=== PATIENT | female | born 1995 | race Caucasian/White ===

== ENCOUNTER 2016-08-27 13:21 | Emergency (ER) | payer OTHER ==
[2016-08-27 13:27] VITALS: BP 113/69
[2016-08-27] MEDS ORDERED: TYLENOL PO ONE (13:32)
[2016-08-27] MEDS ORDERED: TYLENOL ONE (13:33)
--- NOTE | 2016-08-27 14:42 | PROVIDER DOCUMENTATION ---
HPI-EENT General - General Chief Complaint: Cold Symptoms Stated Complaint: COLD SX/7WKS PREG Time Seen by Provider: 08/27/16 14:28 Source: patient Allergies/Adverse Reactions: Patient Allergies Allergy/AdvReac Type Severity Reaction Status Date / Time No Known Allergies Allergy Verified 08/27/16 13:26 Home Medications: Home Medication List Medication Instructions Recorded Confirmed Last Taken Type Oseltamivir [Tamiflu] 75 mg PO BID #10 capsule 08/27/16 Unknown Rx - History of Present Illness-EE General Nature of Presenting Problem: 21 y/o AAF 7 weeks by LMP, c/o cough, congestion and muscle aches x 24 hours. Child is also sick. Fevers subjective. Denies abdominal pain, vaginal bleeding or discharge. No treatment to this point. Denies wheezing or sob. Denies ENT pain Review of Systems - Adult - REVIEW OF SYSTEMS - ADULT Constitutional: reports: see HPI, chills, fever, fatique Eyes: denies: decreased vision, blurred vision, double vision, eye pain Ears, Nose, Mouth & Throat: reports: see HPI. denies: ear pain, nose pain, throat pain Cardiovascular: reports: no symptoms reported. denies: chest pain Respiratory: reports: cough. denies: shortness of breath, wheezing Gastrointestinal: reports: no symptoms reported. denies: abdominal pain, diarrhea, nausea, vomiting Genitourinary: reports: no symptoms reported. denies: dysuria, discharge, frequency, incontinence Musculoskeletal: reports: see HPI, muscle aches. denies: back pain Integumentary: reports: no symptoms reported. denies: rash Neurological: reports: no symptoms reported. denies: headache/migraines Psychiatric: reports: no symptoms reported Endocrine: reports: no symptoms reported Hematologic/Lymphatic: reports: no symptoms reported Allergic/Immunologic: reports: no symptoms reported All Other Systems: Reviewed and Negative Past History - Adult - PAST MEDICAL HISTORY-ADULT Review of Records: reports: Old Records Reviewed, Nursing Assessment Review, Medications Reviewed Major Childhood Illnesses: reports: denies history Cardiovascular: reports: denies history Respiratory: reports: denies history Gastrointestinal: reports: denies history Obstetrical/Gynecological: reports: denies history Genitourinary: reports: denies history Musculoskeletal: reports: denies history Neurological: reports: denies history Endocrine/Immune: reports: denies history Other Conditions: reports: denies history - PRIOR SURGERIES/PROCEDURES Surgical/Procedure History: reports: reviewed, not pertinent - IMMUNIZATION STATUS Childhood Immunizations: See Nurse Assessment Flu Vaccine: See Nurse Assessment - FAMILY HISTORY Family History: reviewed, not pertinent - SOCIAL HISTORY Smoking: denies Substance Use: none/never Alcohol Use Frequency: never Living Situation: family Physical Exam- EENT - Physical Exam EENT Initial Vital Signs Reviewed: Yes General Appearance: appears well, alert, no apparent distress Eye Exam: bilateral eye: normal inspection, PERRL, EOMI Ear Exam: bilateral ear: auricle normal, canal normal, TM normal Throat Exam: normal mouth inspection, pharynx normal Neck: non-tender, supple, normal inspection. negative: lymphadenopathy Respiratory: chest non-tender, lungs clear, normal breath sounds, no pleuratic chest pain, no respiratory distress, no accessory muscle use. negative: respiratory distress, decreased breath sounds, accessory muscle use, crackles, rales, rhonchi, wheezing Cardiovascular: normal peripheral pulses, regular rate, rhythm Extremity: normal gait Integumentary: normal color, normal turgor, warm/dry Neurologic: grossly normal, no motor/sensory deficits Psych/Mental Status: normal mood/affect, normal thought content, normal thought process, oriented x 3 Progress - PLAN OF CARE/RESULTS Progress/Plan/Lab Results: Vital Signs Temp Pulse Resp BP Pulse Ox 08/27/16 13:24 102.0 F H 107 H 16 113/69 100 No Known Allergies Allergy (Verified 08/27/16 13:26) Oseltamivir [Tamiflu] 75 mg PO BID #10 capsule 08/27/16 Laboratory 08/27/16 13:25 Influenza A (Rapid) POSITIVE A Influenza B (Rapid) NEGATIVE Orders Category Date Time Status INFLUENZA SCREEN PL Stat Lab 08/27/16 13:25 Completed Acetaminophen [Tylenol] Med 08/27/16 13:33 Discontinued 650 mg .ROUTE .STK-MED ONE Acetaminophen [Tylenol] Med 08/27/16 13:32 Discontinued 650 mg PO NOW ONE Departure - Departure Time of Disposition Order: 14:40 DIAGNOSIS: Influenza A Disposition: HOME 01 Certified Medical Emergency: Emergent Condition: Stable Additional Instructions: Tylenol and motrin for pain ED Follow Up Instructions: You have been treated by a care provider in the Emergency Department. These instructions are being provided to you so you can have an understanding of how to care for yourself upon discharge. Upon discharge from the Emergency Department, you are responsible for making arrangements for follow-up care by a physician of your choice. Take all prescribed medications as directed. Return to the Emergency Department immediately for any new or worsening symptoms. You may call the Physician Referral phone number at [phone] to obtain a list of Physicians who are taking new patients. Prescriptions: Oseltamivir [Tamiflu] 75 mg PO BID #10 capsule Referrals: King Fairchild [Primary Care Provider] - Attestation - Physician/ ARASELI Attestation Patient care was provided by Advanced Practice Provider:: Yes Advanced Practice Provider:: Glenda Stern Advanced Practice Provider documentation review:: The Mid-level provider documentation, treatment plan and medical decision making was reviewed by the physician who agrees with all treatment and medical decision making by the MLP.
== END 2016-08-27 14:58 | disposition home or self-care (01) ==
LOC: P.ED 13:21
DX: O26.891 Other specified pregnancy related conditions, first trimester (principal); J11.1 Influenza due to unidentified influenza virus with other respiratory manifestations; Z3A.01 Less than 8 weeks gestation of pregnancy; R05 Cough; R09.81 Nasal congestion; M79.1 Myalgia; R50.9 Fever, unspecified; R53.83 Other fatigue
CPT/HCPCS: 87804; 99283